=== PATIENT | male | born 1930 | race Caucasian/White ===

== ENCOUNTER 2017-01-21 09:02 | Inpatient (IN) | payer OTHER ==
[~2017-01-21] VITALS: Ht 175.3 cm; Wt 91.2 kg
--- NOTE | ~2017-01-21 | O ---
[facility] [place] [address] OPERATIVE REPORT Name: STEPHANIE LAGUNAS Room #: 354-P [facility] IN M.R.#: [id number] Admission: 01/21/17 Attend Phys: Venkatesh Lobato DO Discharge: 01/26/17 Date of : 32 Report #: [id number] THIS REPORT FOR: //name// CC: Venkatesh Larson NAME OF SURGEON: David Sandhu MD PREOPERATIVE DIAGNOSIS: Suspected upper gastrointestinal hemorrhage. POSTOPERATIVE DIAGNOSIS: See below. ANESTHESIA USED: See nursing notes NAME OF PROCEDURE PERFORMED: Esophagogastroduodenoscopy. INDICATION FOR PROCEDURE: As above. FINDINGS: 1. Schatzki's ring, mild. 2. 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 4. No evidence of active or recent upper gastrointestinal bleeding source. DESCRIPTION OF PROCEDURE: The risks and benefits of the procedure were explained in detail prior to conscious sedation. The patient was placed in the left lateral decubitus position and the tip of the [employer] video endoscope was advanced into the oropharynx, esophagus, stomach and to the third portion of the duodenum. Close inspection of the upper gastrointestinal mucosa was obtained upon slow withdrawal of the endoscope. The duodenum was normal in appearance without evidence of erosion or ulceration. The pylorus was patent without evidence of obstruction or ulceration. The gastric antrum and gastric body were normal in appearance except for a small nonbleeding AVM. Retroflexion allowed close inspection of the cardia and the fundus, which revealed a mild Schatzki's ring at the GE junction. The rest of the esophagus was evaluated and there was no abnormality noted. Despite a thorough inspection, there was no evidence of a source for a recent upper GI bleed. The patient tolerated the procedure well and was discharged to recovery. IMPRESSION: 1. Schatzki's ring. 2. Small AVM as described. 3. Duodenal lipoma. 4. No evidence of acute upper gastrointestinal hemorrhage. PLAN: [facility] [address] [place] [address] OPERATIVE REPORT Name: JANNETHSTEPHANIE Cassie Room #: 354-P [facility] IN .R.#: [id number] Admission: 01/21/17 Attend Phys: Venkatehs Lobato DO Discharge: 01/26/17 Date of : 32 Report #: [id number] 1. RBC bleeding scan. 2. Consider other options such as colonoscopy if negative. <ELECTRONICALLY SIGNED> By: Azael Boston MD 01/28/1716 1313 27 David Sandhu MD /nt
--- NOTE | ~2017-01-21 | CRIT ---
[facility] [place] [address] CRITICAL CARE NOTE Name: STEPHANIE LAGUNAS Room #: 354-P [facility] IN M.R.#: [id number] Admission: 01/21/17 Attend Phys: Venkatesh Lobato DO Discharge: 01/26/17 Date of : 32 Report #: [id number] THIS REPORT FOR: //name// CC: Venkatesh Larson GI Consult SUBJECTIVE: The patient is an 86-year-old male who I have been asked to see for further evaluation of his melena and profound anemia. He has had 2 weeks of melena and some lightheadedness recently. He was admitted for further evaluation after finding hemoglobin in the 4s. His medical problems also include atrial fibrillation and atrial flutter, coronary artery disease, hypertension, hypercholesterolemia, peripheral vascular disease, sick sinus syndrome, cholelithiasis, status post CABG. ALLERGIES: He is allergic to no medications. MEDICATIONS: Included hydrocodone and senna. He is also on Xarelto, Myrbetriq, Synthroid, Keflex, fish oil, Lasix, K-Dur, Zocor, Hytrin, Zyloprim and allergy medications. PAST MEDICAL AND SURGICAL HISTORY: He has had a CABG x 5 in 2005, left fem-pop bypass in 2008, hypertension, dyslipidemia, back surgery, pacemaker, colonoscopy, gout. REVIEW OF SYSTEMS: Negative for weight loss, weakness or fatigue. Denies head, eyes, ears, nose or throat complaints. Denies chest pain, chest palpitation, chest pressure, cough, shortness of breath, wheezing, genitourinary, musculoskeletal or neuropsychiatric complaints beyond that mentioned above. PHYSICAL EXAMINATION: VITAL SIGNS: He is afebrile. Vital signs stable. HEENT: Nonicteric. NECK: No JVD, thyromegaly or bruits. CARDIOVASCULAR: Irregular. LUNGS: Clear. ABDOMEN: Soft, nondistended, nontender, normoactive bowel sounds. No hepatosplenomegaly. No stigmata of chronic liver disease. No abnormal masses or bruits. EXTREMITIES: No clubbing, cyanosis or edema. NEUROLOGIC: Grossly intact. RECTAL: Deferred. PERTINENT LABORATORY DATA: White count 6.2, hemoglobin 5.5 on presentation up to 9 after 3 units of blood. Platelet count 133. Chemistry notable for BUN 42, creatinine 1.7. Troponin was negative. [address] [address] CRITICAL CARE NOTE Name: STEPHANIE LAGUNAS Room #: 354-P [facility] IN .R.#: [id number] Admission: 01/21/17 Attend Phys: Venkatesh Lobato DO Discharge: 01/26/17 Date of : 32 Report #: [id number] ASSESSMENT AND PLAN: In summary, the patient most likely has an upper gastrointestinal hemorrhage and we will proceed with upper endoscopy for treatment. His risk factors include age, NSAIDs and blood thinners. I appreciate the opportunity to participate in the care of this nice man. <ELECTRONICALLY SIGNED> By: Azael Boston MD 01/28/17 0916 1257 1927 David Sandhu MD /nt
--- NOTE | ~2017-01-21 | P ---
[facility] [place] [address] PROCEDURE REPORT Name: STEPHANIE LAGUNAS Room #: 354-P [facility] IN M.R.#: [id number] Admission: 01/21/17 Attend Phys: Venkatesh Lobato DO Discharge: 01/26/17 Date of : 32 Report #: [id number] THIS REPORT FOR: //name// CC: Venkatesh Larson MD BRIEF HISTORY: The patient is an 86-year-old male with recent GI bleed, on anticoagulation with Xarelto. He had black stools. He also had positive bleeding scan on delayed images with activity in the cecum. PREOPERATIVE DIAGNOSIS: Gastrointestinal bleeding. POSTOPERATIVE DIAGNOSES: 1. Colon polyps x 3. 2. Extensive colonic diverticulosis coli, right and left colon. MEDICATIONS: Deep sedation with propofol per anesthesia. SPECIMEN: 1. Mid transverse colon polyps x 2. 2. Polyp at 60 cm. ESTIMATED BLOOD LOSS: 3 mL PROCEDURE: Colonoscopy to the cecum with snare polypectomy. FINDINGS: Prior to propofol sedation, procedure of colonoscopy discussed with the patient as well as potential risks and its complications. He indicates he understands and desires to proceed. DESCRIPTION OF PROCEDURE: With the patient in left lateral decubitus position, digital examination was completed, which revealed duodenitis. Subsequently, [employer] video colonoscope was then introduced in the rectum under direct vision to the cecum. Done with some difficulty, it was very tortuous and redundant colon. We were able to reach the cecum, which was identified by the appendiceal orifice. We did see the ileocecal valve, and I was able to advance the tip of the scope briefly into the mouth of ileocecal valve and see a villous pattern, but could not deeply intubate due to tortuosity of the scope. At that point, the scope was slowly withdrawn and careful circumferential views were obtained. Upon slow withdrawal of scope, the prep was noted to be good. The mucosa was within normal limits. Normal vascular pattern. Normal light reflex. As we withdrew the scope, he was noted to have diverticula throughout the colon. The diverticular disease was greater in the left colon than the right colon. However, there was no evidence of ongoing bleeding and active bleeding was not identified during this examination. As we withdrew the scope and examined the mucosa, he was found to have 2 flat polyps in the mid transverse colon with the [facility] [address] [place] [address] PROCEDURE REPORT Name: STEPHANIE LAGUNAS Cassie Room #: 354-P [facility] IN M.R.#: [id number] Admission: 01/21/17 Attend Phys: Venkatesh Lobato DO Discharge: 01/26/17 Date of : 32 Report #: [id number] largest about 6-7 mm in greatest dimension. The smaller one was removed with biopsy forceps and the larger one was removed by cold snare polypectomy. The scope was further withdrawn and again diverticular disease was seen, and in the descending colon at 60 cm, another 4-5 mm flat polyp was seen and removed by cold snare polypectomy. Scope was further withdrawn, and other than diverticula, no additional abnormalities were seen. Scope was withdrawn. The patient tolerated the procedure well. CONDITION OF THE PATIENT UPON DISCHARGE: Following procedure, the patient drowsy, aroused and conversant. DISPOSITION: The patient with GI bleeding. Active bleeding not identified. Vascular ectasias were not seen in his colon. Please see upper endoscopy report with regards to gastric AVMs. However, he does have extensive diverticular disease including the right and left colon. This could be a potential source of bleeding as well. At this point in time, we will observe for additional bleeding. If there is continued concern for gastrointestinal blood loss, small bowel capsule study may be helpful. If anticoagulation needs to be resumed, could probably be safely done in 2 days or so. <ELECTRONICALLY SIGNED> By: Portillo Winkler MD 01/27/17 1656 1540 2213 Portillo Winkler MD /nt
--- NOTE | ~2017-01-21 | 2DMMODE ---
[facility] [address] [place] [address] 2 D/M-MODE ECHOCARDIOGRAM Name: BINCORINESTEPHANIE R Room #: 354-P AD[facility] IN M.R.#: [id number] Admission: 01/21/17 Attend Phys: Venkatesh Lobato, Discharge: Date of : 32 Date of Service: 01/23/17 194 Report #: [id number] THIS REPORT FOR: //name// APPROVED REPORT Study performed: 01/23/2017 14:14:08 EXAM: Comprehensive 2D, Doppler, and color-flow Echocardiogram Patient Location: Bedside Room #: 354 Status: routine BSA: 2.07 HR: 69 bpm BP: 107/39 mmHg Other Information Study Quality: Adequate Indications Atrial Fibrillation Dyspnea Pacemaker CAD Hypertension/HDD 2D Dimensions RVDd: 56.64 mm LVEF(%): 64.08 (>50%) IVSd: 10.95 (7-11mm) LVOT Diam: 21.51 (18-24mm) LVDd: 50.12 mm PWd: 10.91 (7-11mm) Ascending Ao: 27.59 (22-36mm) LVDs: 32.55 (25-40mm) Aortic Root: 33.11 mm IVC: 28.00 mm Preston's LVEF: 64.08 % Volumes Left Atrial Volume (Systole) Single Plane 4CH: 101.46 mL Single Plane 2CH: 111.69 mL LA ESV Index: 56.00 mL/m2 Aortic Valve AoV Peak Rajat.: 1.49 m/s AO Peak Gr.: 8.92 mmHg LVOT Max P.94 mmHg LVOT Max V: 0.86 m/s STEPHANIE Vmax: 2.[address] [facility] [place] [address] 2 D/M-MODE ECHOCARDIOGRAM Name: STEPHANIE LAGUNAS Room #: 354-P [facility] IN [facility].#: [id number] Admission: 01/21/17 Attend Phys: Venkatesh Lobato, Discharge: Date of : 32 Date of Service: 01/23/17 1942 Report #: [id number] Mitral Valve MV Decel. Time: 187.07 ms MV E Max Rajat.: 1.12 m/s Pulmonary Valve PV Peak Rajat.: 1.07 m/s PV Peak Gr.: 4.56 mmHg Tricuspid Valve TR Peak Rajat.: 2.08 m/s TR Peak Gr.: 17.38 mmHg PA Pressure: 27.00 mmHg Left Ventricle The left ventricle is normal size. There is normal left ventricular wall thickness. The left ventricular systolic function is normal. The left ventricular ejection fraction is within the normal range. LVEF is 60-65%. This study is not technically sufficient to allow evaluation of the LV diastolic function. Right Ventricle Right ventricle is dilated. Right ventricle is mildly hypokinetic. Pacemaker lead is present in the right ventricle. Atria Left atrium is dilated. Right atrium is dilated. Pacemaker lead is present in the right atrium. Aortic Valve Aortic valve is calcified. No aortic regurgitation is present. There is no aortic valvular stenosis. Mitral Valve The mitral valve is normal in structure. Trace to mild mitral regurgitation. No evidence of mitral valve stenosis. Tricuspid Valve The tricuspid valve is normal in structure. There is mild tricuspid regurgitation. Estimated PAP 27 mmHg. There is no pulmonary hypertension. Pulmonic Valve The pulmonary valve is normal in structure. There is no pulmonic valvular regurgitation. Great Vessels The aortic root is normal in size. IVC is dilated and collapses [facility] [address] [place] [address] 2 D/M-MODE ECHOCARDIOGRAM Name: STEPHANIE LAGUNAS Cassie Room #: 354-P [facility] IN .R.#: [id number] Admission: 01/21/17 Attend Phys: Venkatesh Lobato, Discharge: Date of : 32 Date of Service: 01/23/17 194 Report #: [id number] >50% with inspiration. Pericardium There is no pericardial effusion. <Conclusion> The left ventricular systolic function is normal. LVEF is 60-65%. Right ventricle is dilated, mildly hypokinetic. Both atria are dilated. Pacemaker lead is present in the right atrium. Aortic valve is calcified. No aortic regurgitation or stenosis The mitral valve is normal in structure. Trace to mild mitral regurgitation. Pulmonary artery pressure of 27mmHg There is no pericardial effusion. <ELECTRONICALLY SIGNED> By: Diony Tello MD, FACC 01/23/171941 41 41 Diony Tello MD, FACC /INF
--- NOTE | ~2017-01-21 | S ---
[facility] [place] [address] SURGICAL PATH RPT PROCEDURE Name: RAH LAGUNAS Room #: 354-P [facility] IN M.R.#: [id number] Admission: 01/21/17 Date of : 32 Discharge: 01/26/17 Report #: [id number] Path Case #: [id number] PATHOLOGY REPORT COLLECTION DATE: 01/24/2017 RECEIVED DATE: 01/25/2017 SUBMITTING PHYS: Dr. Portillo Winkler OTHER PHYS: Dr. Venkatesh Larson SPECIMEN(S) RECEIVED: A.Bx of jejunal polyp x2 B.Bx of submucosal lesion-2nd portion of duodenum C.Bx of polyp at transverse colon D.Polyp at 60 cm * * * * * * * * * * * * FINAL DIAGNOSIS: A. Small intestinal mucosa "biopsy of jejunal polyp x 2": - Polypoid mucosa with mild hyperplastic changes and dilated lymphatic channels. - There is no evidence of adenomatous change, high-grade dysplasia or malignancy. B. Small intestinal mucosa "biopsy of submucosal lesion second portion of duodenum": - Submucosal fibroadipose tissue consistent with a possible submucosal lipoma. - There is no evidence of acute cryptitis, granulomata, adenomatous change, sprue-like changes or malignancy. C. Colonic mucosa "biopsy of polyp transverse colon": - Tubular adenoma. - There is no evidence of high-grade dysplasia or malignancy. D. Colonic mucosa "polyp at 60 cm": - Tubular adenoma. - There is no evidence of high-grade dysplasia or malignancy. (SHA:pit; 01/26/2017) PATHOLOGIST: Mohamud Mao M.D. REPORT ELECTRONICALLY SIGNED BY: Mohamud Mao M.D. DATE/TIME: 01/26/2017 13:04 * * * * * * * * * * * * GROSS PATHOLOGY: A. Received in formalin labeled "Rha Lagunas BX of jejunal polyp 2," are 4 segments of bradford soft tissue measuring 1.5 x 1.1 x 0.3 cm in aggregate dimensions and ranging from 0.3 to 0.4 cm in maximum [address] [address] SURGICAL PATH RPT PROCEDURE Name: RAH LAGUNAS Room #: 354-P [facility] IN M.R.#: [id number] Admission: 01/21/17 Date of : 32 Discharge: 01/26/17 Report #: [id number] Path Case #: [id number] dimension. The specimen is submitted entirely in cassette A1. B. Received in formalin labeled "Rah Lagunas BX of submucosal lesion second portion of duodenum," are 3 segments of bradford soft tissue measuring 1.5 x 0.9 x 0.2 cm in aggregate dimensions and ranging from 0.3 to 0.5 cm in maximum dimension. The specimen is submitted entirely in cassette B1. C. Received in formalin labeled "Rah Lagunas BX of polyp at transverse colon," are 4 segments of bradford soft tissue measuring 1.1 x 1.3 x 0.5 cm in aggregate dimensions and ranging from 0.3 to 0.6 cm in maximum dimension. The specimen is submitted entirely in cassette C1. D. Received in formalin labeled "Rah Lagunas, polyp at 60," is a segment of bradford soft tissue measuring 0.4 cm in maximum dimension. The specimen is submitted entirely in cassette D1. (TSD; 01/25/2017) CLINICAL HISTORY: Pre-OP DX: Anemia Post-OP DX: Diverticulosis, jejunal polyp, AUMs, colon polyps INITIAL CPT CODE(S): A; 97299 B; 95573 C; 17933 D; 01312 Professional services performed by [facility] at [facility] [address], [place] [address] Technical services performed by [facility] at [address] [place] [address], [facility] [address], [place] [address]. [facility] [address] [place] [address] PHONE: [phone] DIRECTOR: Sonu Perry M.D. * * * END OF REPORT * * *
--- NOTE | ~2017-01-21 | P ---
[facility] [place] [address] PROCEDURE REPORT Name: STEPHANIE LAGUNAS Room #: 354-P ADM IN M.R.#: [id number] Admission: 01/21/17 Attend Phys: Venkatesh Lobato DO Discharge: Date of : 32 Report #: [id number] THIS REPORT FOR: //name// CC: Venkatesh Larson MD DATE OF SERVICE: 01/24/2017 INPATIENT SMALL BOWEL ENDOSCOPY REPORT BRIEF HISTORY: The patient is an 86-year-old male who presented with marked anemia and history of melanotic stools. He has required transfusion. Bleeding scan on delayed images revealed activity in the cecum, which could have come from the proximal colon or the small bowel. Also, recent upper endoscopy revealed a gastric AVM. PREOPERATIVE DIAGNOSIS: Gastrointestinal bleeding. POSTOPERATIVE DIAGNOSES: 1. Nonbleeding arteriovenous malformation, body of the stomach x 2. 2. Multiple small polypoid lesion, likely lymphangiectasias. 3. Submucosal lesion second portion of the duodenum, likely lipoma. MEDICATIONS: Deep sedation with propofol per Anesthesia. SPECIMEN: 1. Biopsies of jejunal polyps x 2. 2. Biopsy submucosal lesion duodenum, question of lipoma. ESTIMATED BLOOD LOSS: 5 mL. PROCEDURE: Small bowel endoscopy with biopsy and BICAP cautery. FINDINGS: Prior to propofol sedation, procedure of small bowel endoscopy was discussed with the patient as well as potential risks and its complications. He indicates he understands and desires to proceed. DESCRIPTION OF PROCEDURE: With the patient in left lateral decubitus position, the [employer] video colonoscope was advanced in the mouth under direct vision without difficulty. It was advanced into the esophagus, through the stomach, across the pylorus into duodenum. We then advanced the scope its full length into the jejunum. We obtained relatively deep advancement of the scope into the jejunum. Upon slow withdrawal of the scope, the mucosa was inspected. The mucosa was within normal limits, normal vascular pattern, normal light reflex. No blood was seen in the small bowel. No vascular ectasias were seen. [facility] [address] [place] [address] PROCEDURE REPORT Name: STEPHANIE LAGUNAS Room #: 354-P [facility] IN M.R.#: [id number] Admission: 01/21/17 Attend Phys: Venkatesh Lobato DO Discharge: Date of : 32 Report #: [id number] polypoid lesions were seen with the largest about 5 mm. Two were biopsied and upon biopsy, whitish liquid exuded and these are likely lymphangiectasias. Scope was further withdrawn and in the second portion of the duodenum, there was 1-1.5 cm submucosal lesion. Biopsies were obtained and typical fatty material was seen and these were felt to be consistent with lipoma. The scope was withdrawn into the stomach and on examination, end view as well as retroflexed views revealed two 5-mm nonbleeding AVMs in the body of the stomach. Both were treated with BICAP probe. It is noted that upon touching these lesions, both of them started to bleed. Both were completely destroyed with the BICAP probe. Upon careful reinspection of stomach on end view as well as retroflexed views, no additional vascular ectasias were seen. No other bleeding lesions were seen. Scope was withdrawn. The patient tolerated the procedure well. DISPOSITION: The patient with GI bleeding. Finding of gastric AVMs x 2 as noted above. No significant small bowel lesions were identified with regards to bleeding. We will follow up on biopsies obtained today. Proceed with colonoscopy. <ELECTRONICALLY SIGNED> By: oPrtillo Winkler MD 01/24/17 1927 1503 1836 Portillo Winkler MD /nt
[~2017-01-21 09:02] MED LIST: ALLERGY RELIEF10 M5 PO; ALLOPURINOL 30300 M2 PO; APAP650 PO; ASPIRIN BUFFER325 MG PO; ASPIRIN325 PO; CENTRUM SILVER1 EAC1 PO; CENTRUM SILVER1 EAC2 PO; FISH OIL 1,0001 EAC5 PO; HYTRIN 5 M5 MG/1 CAP PO; HYTRIN PO; K-DUR 20 MEQ T20 MEQ PO; KEFLEX500 M1 PO; KEFLEX500 MG PO; LASIX 40 MG TAB40 M1 PO; LISINOPRIL20 MG PO; NIASPAN 500 MG500 M1 PO; NORCO 5-325 TA1 EACH PO; PLAVIX 75 MG TA75 M1 PO; SENNA-S TABLET1 EACH PO; SIMVASTATIN40 MG PO; TRENTAL400 MG PO
[2017-01-21] MEDS ORDERED: XARELTO15 MG PO (12:03)
[2017-01-21 13:27] LABS: HEMOGLOBIN 5.5 gm/dL (14.0-18.0)
[2017-01-21 13:28] LABS: HEMATOCRIT 17.1 % (42.0-52.0)
[2017-01-21] MEDS ORDERED: MYRBETRIQ25 MG PO (13:39)
[2017-01-21] MEDS ORDERED: SYNTHROID50 MCG PO (13:40)
[2017-01-21 14:53] VITALS: BP 119/51; BP 120/44
[2017-01-21 17:30] VITALS: BP 107/76; BP 119/51; BP 138/54
[2017-01-21 19:45] VITALS: BP 134/52
[2017-01-21 20:50] VITALS: BP 138/52
[2017-01-21 23:16] LABS: HEMOGLOBIN 6.9 gm/dL (14.0-18.0)
[2017-01-21 23:18] LABS: HEMATOCRIT 20.7 % (42.0-52.0)
[2017-01-22 00:48] VITALS: BP 122/48; BP 126/44
[2017-01-22 03:53] VITALS: BP 120/52; BP 122/48; BP 122/64
[2017-01-22 04:00] VITALS: BP 120/52
[2017-01-22 07:34] LABS: MCH 30.8 pg (26.0-34.0); MCHC 33.3 g/dL (28.0-37.0); MCV 92.3 fL (80.0-100.0); RBC 2.93 mil/uL (4.50-6.00); RDW 18.5 % (10.5-14.5); WBC 6.2 thou/uL (4.0-11.0)
[2017-01-22 07:55] VITALS: BP 148/64
[2017-01-22 07:55] LABS: CALCIUM 9.2 mg/dL (8.5-10.1); CREATININE 1.7 mg/dL (0.7-1.3); POTASSIUM 4.3 mmol/L (3.5-5.1)
[2017-01-22 16:00] VITALS: BP 123/54
[2017-01-22 20:00] VITALS: BP 112/47
[2017-01-23 04:00] VITALS: BP 116/46
[2017-01-23 07:48] VITALS: BP 114/40
[2017-01-23 09:37] LABS: HEMATOCRIT 27.7 % (42.0-52.0); HEMOGLOBIN 9.4 gm/dL (14.0-18.0); MCH 31.3 pg (26.0-34.0); MCHC 33.8 g/dL (28.0-37.0); MCV 92.7 fL (80.0-100.0); RBC 2.99 mil/uL (4.50-6.00); RDW 18.4 % (10.5-14.5); WBC 5.8 thou/uL (4.0-11.0)
[2017-01-23 11:43] VITALS: BP 107/39
[2017-01-23 15:41] VITALS: BP 97/43
[2017-01-23 19:11] VITALS: BP 115/90
[2017-01-24 04:42] VITALS: BP 132/56
[2017-01-24 06:35] LABS: HEMATOCRIT 28.4 % (42.0-52.0); HEMOGLOBIN 9.6 gm/dL (14.0-18.0); MCH 31.4 pg (26.0-34.0); MCHC 33.7 g/dL (28.0-37.0); RBC 3.05 mil/uL (4.50-6.00); RDW 18.6 % (10.5-14.5); WBC 5.4 thou/uL (4.0-11.0)
[2017-01-24 06:46] LABS: CREATININE 1.7 mg/dL (0.7-1.3); MAGNESIUM 2.4 mg/dL (1.8-2.4); POTASSIUM 3.9 mmol/L (3.5-5.1)
[2017-01-24 11:48] VITALS: BP 125/52
[2017-01-24 16:00] VITALS: BP 127/53
[2017-01-24 20:00] VITALS: BP 110/46
[2017-01-25 05:00] VITALS: BP 125/50
[2017-01-25 06:46] LABS: HEMATOCRIT 27.2 % (42.0-52.0); MCH 30.9 pg (26.0-34.0); MCV 93.6 fL (80.0-100.0); RBC 2.9 mil/uL (4.50-6.00); RDW 18.7 % (10.5-14.5); WBC 6.2 thou/uL (4.0-11.0)
[2017-01-25 07:02] LABS: CALCIUM 8.6 mg/dL (8.5-10.1); CREATININE 1.6 mg/dL (0.7-1.3)
[2017-01-25 07:40] VITALS: BP 125/45
[2017-01-25 12:03] VITALS: BP 146/75
[2017-01-25 16:15] VITALS: BP 118/57
[2017-01-25 19:15] VITALS: BP 105/41
[2017-01-25 23:10] VITALS: BP 121/62
[2017-01-26 04:00] VITALS: BP 140/59
[2017-01-26 05:30] LABS: HEMOGLOBIN 8.6 gm/dL (14.0-18.0); MCH 30.9 pg (26.0-34.0); MCHC 33.1 g/dL (28.0-37.0); MCV 93.2 fL (80.0-100.0); RBC 2.79 mil/uL (4.50-6.00); RDW 17.7 % (10.5-14.5); WBC 5.4 thou/uL (4.0-11.0)
[2017-01-26 05:50] LABS: CALCIUM 8.4 mg/dL (8.5-10.1); CREATININE 1.6 mg/dL (0.7-1.3); POTASSIUM 3.8 mmol/L (3.5-5.1)
[2017-01-26 07:05] VITALS: BP 136/56
[2017-01-26] MEDS ORDERED: PROTONIX40 M1 PO (09:30)
[2017-01-26 11:45] VITALS: BP 136/56
== END 2017-01-26 13:02 | disposition home or self-care (01) | DRG 378 ==
LOC: 4S 09:02 → 3W 10:05 → ENTRNSPT 01-26 12:15 → EDTRNSPTSTS 01-26 12:18 → 3W 01-26 13:02
PROVIDERS: Family Medicine; Hospitalist; Internal Medicine
PROC: 30233N1 Transfusion of Nonautologous Red Blood Cells into Peripheral Vein, Percutaneous Approach (ICD-10-PCS; principal; 2017-01-21)
PROC: 0DJ08ZZ Inspection of Upper Intestinal Tract, Via Natural or Artificial Opening Endoscopic (ICD-10-PCS; 2017-01-22)
PROC: 0DB98ZX Excision of Duodenum, Via Natural or Artificial Opening Endoscopic, Diagnostic (ICD-10-PCS; 2017-01-24)
PROC: 0DBA8ZX Excision of Jejunum, Via Natural or Artificial Opening Endoscopic, Diagnostic (ICD-10-PCS; 2017-01-24)
PROC: 0DBL8ZZ Excision of Transverse Colon, Via Natural or Artificial Opening Endoscopic (ICD-10-PCS; 2017-01-24)
DX: K55.21 Angiodysplasia of colon with hemorrhage (principal); D62 Acute posthemorrhagic anemia; I48.92 Unspecified atrial flutter; N17.9 Acute kidney failure, unspecified; I48.91 Unspecified atrial fibrillation; I49.5 Sick sinus syndrome; I10 Essential (primary) hypertension; I25.10 Atherosclerotic heart disease of native coronary artery without angina pectoris; M10.9 Gout, unspecified; E78.00 Pure hypercholesterolemia, unspecified; I73.9 Peripheral vascular disease, unspecified; K80.20 Calculus of gallbladder without cholecystitis without obstruction; D17.79 Benign lipomatous neoplasm of other sites; K22.2 Esophageal obstruction; K63.5 Polyp of colon; Z95.1 Presence of aortocoronary bypass graft; Z87.11 Personal history of peptic ulcer disease; Z79.01 Long term (current) use of anticoagulants; Z79.899 Other long term (current) drug therapy; Z87.891 Personal history of nicotine dependence
CPT/HCPCS: 10879; 62110; 62900; 70005

== ENCOUNTER → 2019-03-20 | Outpatient (CLI) | payer MEDICARE ==
[~2019-03-20] MED LIST changes: +MYRBETRIQ25 MG PO; +PROTONIX40 M1 PO; +SYNTHROID50 MCG PO; +XARELTO15 MG PO
== END ==
LOC: SJCVC 14:58
DX: Z45.018 Encounter for adjustment and management of other part of cardiac pacemaker (principal); R94.31 Abnormal electrocardiogram [ECG] [EKG]; I25.10 Atherosclerotic heart disease of native coronary artery without angina pectoris; I10 Essential (primary) hypertension; I48.21 Permanent atrial fibrillation; I73.9 Peripheral vascular disease, unspecified; E78.00 Pure hypercholesterolemia, unspecified; Z95.1 Presence of aortocoronary bypass graft; Z95.5 Presence of coronary angioplasty implant and graft; Z79.899 Other long term (current) drug therapy; Z87.891 Personal history of nicotine dependence